=== PATIENT | male | born 1950 | race Two or more races ===

== ENCOUNTER 2021-12-02 08:40 | Outpatient (REF) | payer MEDICARE, SELFPAY ==
--- NOTE | ~2021-12-02 | CT_ITS ---
CT ANGIOGRAM NECK WITH CONTRAST CT ANGIOGRAM BRAIN WITH CONTRAST CLINICAL INFORMATION: Recurrent syncope. COMPARISON: None available per TECHNIQUE: Test bolus sequences followed by intravenous administration 70 mL of Omnipaque 350. Helical imaging was performed in the axial plane from the thoracic inlet to the skull vertex. Delayed postcontrast imaging of the head was also performed. The data was processed at the soil technologist workstation for generation of MIP sequences. Angled MIPs and volume rendered reformatted images were also generated at an offline 3D workstation under concurrent supervision. Stenoses are assessed in accordance with NASCET criteria unless otherwise indicated. This CT examination was performed using dose optimization techniques as appropriate, variously including the following: *Automated exposure control *Adjustment of mA and/or kV according to patient size (this includes techniques or standardized protocols for targeted exams where dose is matched to indication/reason for exam; i.e. extremities or head) *Use of iterative reconstruction technique FINDINGS: BRAIN: There is global cerebral volume loss and there is probable moderate chronic microangiopathy. Calcification within the globus pallidus bilaterally. [There is no intracranial hemorrhage, hydrocephalus, extra-axial surface collection, midline shift, or other herniation pattern. Doan to white matter differentiation is diffusely maintained without evidence of an evolved acute territorial infarct. The basilar cisterns are preserved. No significant soft tissue abnormality. No acute osseous abnormality. There is mild mucosal thickening throughout the paranasal sinuses. Pneumatization of the optic struts and anterior clinoid processes bilaterally. There is mild mucosal thickening throughout the paranasal sinuses. CERVICAL SOFT TISSUES AND LUNG APICES: There are median sternotomy wires. There is multilevel cervical spondylosis. At C5-C6, there are advanced spondylitic changes result in suspected severe central canal stenosis and mass effect on the cervical spinal cord that would be better assessed with a cervical spine MRI if there is cervical myelopathy clinically. Imaged upper lungs are clear. No significant soft tissue findings within the neck. NECK CTA: [There is a classic 3 vessel configuration of the aortic arch. Proximal arch vessels are non-stenotic. The vertebral arteries are codominant. No significant ostial stenosis is visualized on either side. Both vertebral arteries are widely patent throughout their extracranial cervical course. Both common carotid arteries are normal in course and caliber.] There is atherosclerotic calcification involving the carotid bifurcations bilaterally without significant stenosis involving the proximal internal carotid arteries. BRAIN CTA: [There is normal opacification of major intracranial arteries. No focal flow-limiting stenosis nor discrete proximal large artery occlusion. No aneurysm. Timing of the contrast bolus allows assessment of the major dural venous sinuses, which all opacify normally] CT/CT angio head neck IMPRESSION: - No acute intracranial findings. There is global cerebral volume loss and there is probable moderate chronic microangiopathy. - No significant arterial stenoses and no acute arterial occlusions within the head or neck. - At C5-C6, there are advanced spondylitic changes result in suspected severe central canal stenosis and mass effect on the cervical spinal cord that would be better assessed with a cervical spine MRI if there is cervical myelopathy clinically.
[2021-12-02] MEDS: iohexoL 350 MG/ML 100 ML INFUS..BTL IV (09:38)
== END 2021-12-02 08:41 | disposition home or self-care (01) ==
LOC: HO.CT 08:40
PROVIDERS: Visit Provider Psychiatry & Neurology Neurology
DX: R55 Syncope and collapse (principal)
CPT/HCPCS: 70496; 70498; Q9967

== ENCOUNTER 2022-02-28 10:35 | Observation (INO) | payer MEDICARE, SELFPAY ==
[2022-02-28] VITALS (9 sets, daily range): BP systolic 132–186; BP diastolic 80–98; PULSE 52–66; RESP 13–18; TEMP 36.6–36.9; O2SAT 95–97; BMI 30.7; BMI 31.3
--- NOTE | ~2022-02-28 | XR_ITS ---
EXAMINATION: XR chest 1V CLINICAL INFORMATION: Reason for Exam Syncope COMPARISON: None TECHNIQUE: XR chest 1V Tubes and lines: Sternotomy wires from prior thoracotomy. Lungs and pleura: Diminished lung volume, elevated left hemidiaphragm, there is mild infiltrate and subsegmental atelectasis at lung bases bilaterally. No significant pleural effusion. Heart and mediastinum: The mediastinum is within normal limits.. Bones/soft tissue: Skeletal structures included are normal for patient's age. XR/XR chest 1V IMPRESSION: Bibasilar mild infiltrate/atelectasis. Elevation left hemidiaphragm. Clinical correlation and follow-up recommended.
--- NOTE | ~2022-02-28 | CT_ITS ---
EXAMINATION: CT HEAD WITHOUT CONTRAST CT CERVICAL SPINE WITHOUT CONTRAST CLINICAL INFORMATION: Head trauma. On Eliquis COMPARISON: None. TECHNIQUE: Imaging was performed from the skull base to vertex without intravenous administration of contrast. In addition, helical noncontrast CT imaging was acquired through the cervical spine and source images were reviewed along with axial reconstructions and sagittal and coronal MPRs. [This CT examination was performed using dose optimization techniques as appropriate, variously including the following: *Automated exposure control *Adjustment of mA and/or kV according to patient size (this includes techniques or standardized protocols for targeted exams where dose is matched to indication/reason for exam; i.e. extremities or head) *Use of iterative reconstruction technique] DLP: 1201 mGy-cm FINDINGS: HEAD: No intracranial mass, hemorrhage, or midline shift is visualized. There is generalized global volume loss. There is moderate prominence of the ventricles and the sulci . There is moderate hypodensity of the periventricular white matter due to chronic small vessel ischemic disease. There are vascular calcifications of the internal carotid arteries bilaterally.. No extra-axial collections are identified. The paranasal sinuses and mastoid air cells are well aerated. CERVICAL SPINE: There is no evidence of acute cervical spine fracture. Vertebral bodies remain normal in height. Cervical vertebrae have normal alignment. There is multilevel degenerative spondylosis of the cervical spine with disc height narrowing and endplate spurs and facet joint arthrosis No pre- or paravertebral soft tissue abnormality is identified. Limited assessment of the lung apices is unremarkable. CT/CT cervical spine wo con IMPRESSION: 1. No acute intracranial pathology. 2. No CT evidence of acute cervical spine fracture or traumatic subluxation
--- NOTE | ~2022-02-28 | CT_ITS ---
EXAMINATION: CT ABDOMEN AND PELVIS WITH CONTRAST CLINICAL INFORMATION: Status post fall, left lower quadrant pain, on Eliquis. COMPARISON: None TECHNIQUE: Multidetector volumetric images were obtained from the superior aspect of the liver through the pubic symphysis following administration 85 mL of Omnipaque 350 intravenous contrast. Sagittal and coronal reformatted images were obtained on the technologist's workstation. Oral contrast: No This CT examination was performed using dose optimization techniques as appropriate, variously including the following: *Automated exposure control *Adjustment of mA and/or kV according to patient size (this includes techniques or standardized protocols for targeted exams where dose is matched to indication/reason for exam; i.e. extremities or head) *Use of iterative reconstruction technique DLP: 849 mGy-cm FINDINGS: LUNG BASES: Elevation of the left hemidiaphragm. LIVER, GALLBLADDER, AND BILIARY TREE: Unremarkable. PANCREAS: Fatty atrophy, most pronounced in the pancreatic head. No pancreatic ductal dilatation. Pancreatic abnormality. SPLEEN: Unremarkable. ADRENAL GLANDS: Unremarkable. KIDNEYS AND URETERS: Right fluid attenuation interpolar renal cyst measures 2.1 cm (image 29, series 3). The left kidney is unremarkable. No hydronephrosis. BLADDER: Unremarkable. GASTROINTESTINAL TRACT: The stomach and small bowel are unremarkable. The colon is unremarkable. The rectum shows moderate stool without surrounding abnormality. ABDOMINAL WALL: Multiple small to moderate fat-containing supraumbilical ventral hernias are seen without associated abnormality. Very small umbilical hernia. LYMPH NODES: No lymphadenopathy. VASCULAR: Mild to moderate atherosclerosis, most pronounced in the infrarenal abdominal aorta without dilatation. PELVIC VISCERA: Unremarkable. OSSEOUS STRUCTURES: Mild multilevel degenerative changes in the thoracolumbar spine without suspicious abnormality. CT/CT abdomen pelvis w con IMPRESSION: 1. No acute intra-abdominal/pelvic abnormality to explain the patient's pain. No evidence for hemorrhage/hematoma. 2. Multiple small to moderate supraumbilical midline fat-containing ventral hernias without associated abnormality. 3. Pancreatic fatty atrophy as detailed above without acute abnormality. 4. Small right renal fluid attenuation cyst.
--- NOTE | 2022-02-28 11:31 | ECG_ITS ---
Test Reason : syncope Blood Pressure : / mmHG Vent. Rate : 056 BPM Atrial Rate : 056 BPM P-R Int : 194 ms QRS Dur : 162 ms QT Int : 506 ms P-R-T Axes : -03 -72 -03 degrees QTc Int : 488 ms Sinus bradycardia with Premature atrial complexes Right bundle branch block Left anterior fascicular block Bifascicular block Minimal voltage criteria for LVH, may be normal variant ( R in aVL ) Septal infarct , age undetermined Abnormal ECG No previous ECGs available Referred By: Alda Norris Electronically Signed By:Buzz Ojeda
[2022-02-28 12:49] LABS: MANUAL DIFF FLAG NO
[2022-02-28 12:53] LABS: Basophils Percent Auto 0.2 % (0-2); Hematocrit 44.5 % (42.0-52.0); Hemoglobin 15.4 g/dl (14.0-18.0); Imm Gran Abs Auto 0.05 X10*3/uL (0.00-0.03); Imm Gran Pct Auto 0.5 % (0.0-0.4); Lymphocytes Absolute Auto 1.5 X10*3/uL (1.2-4.9); Lymphocytes Percent Auto 13.9 % (20-40); Mean Corpuscular HGB Conc 34.6 g/dl (31.0-36.0); Mean Corpuscular Volume 86.6 fL (80.0-98.0); Mean Platelet Volume 10.1 fL (9.4-12.4); Monocytes Absolute Auto 1.1 X10*3/uL (0.1-1.2); Neutrophils Percent Auto 75.4 % (45-73); Platelet Count 228 X10*3/uL (160-400); Red Blood Count 5.14 X10*6/uL (4.60-5.80); Red Cell Distribution Width 12.6 % (11.0-16.0); White Blood Count 10.6 X10*3/uL (4.8-10.8)
[2022-02-28 13:06] LABS: COVID-19 Test Negative (Negative); IDNOW Serial# 55D5AD1C
--- NOTE | 2022-02-28 13:15 | PHA.MEDREC ---
Pharmacy Consult ? Medication Reconciliation Pharmacy has completed the medication reconciliation. No remarkable issues. Erinn Hemphill, HiraD
--- NOTE | 2022-02-28 13:42 | ED_ITS ---
HPI - General Adult General Chief complaint: Syncope Stated complaint: syncope Time Seen by Provider: 02/28/22 11:52 Source: patient and EMS Mode of arrival: EMS History of Present Illness HPI narrative: 71-year-old male with a past medical history CAD s/p CABG 2013 on Eliquis, presenting to the ED complaining of unwitnessed syncopal episode this morning while at a restaurant drinking coffee. Reports fall out of chair +LOC, admits to mild headache and neck pain at present, nausea which has resolved. Reports feeling lightheaded prior to fall, with generalized fatigue/weakness and slow movements over the past few days, which family at bedside reports usually precedes these episodes. This is patient's 5th syncopal episode in the past year. Otherwise denies CP/SOB, abdominal pain, nausea/vomiting, diarrhea, recent illness. Onset (ago): hour(s) Related Data Home Medications Medication Instructions Recorded Confirmed albuterol sulfate 90 mcg/actuation 2 puff PO Q4H 02/28/22 02/28/22 aerosol inhaler alfuzosin 10 mg tablet,extended 1 tab PO Q OTHER DAY 02/28/22 02/28/22 release 24 hr apixaban 5 mg tablet (Eliquis) 1 tab PO BID 02/28/22 02/28/22 azithromycin 250 mg tablet 1 tab PO MOWEFR 02/28/22 02/28/22 budesonide 180 mcg/actuation 1 - 2 puff INHALATION BID 02/28/22 02/28/22 breath activated powder inhaler (Pulmicort Flexhaler) budesonide-formoterol HFA 160 2 inh INHALATION BID 02/28/22 02/28/22 mcg-4.5 mcg/actuation aerosol inhaler (Symbicort) finasteride 5 mg tablet 1 tab PO DAILY 02/28/22 02/28/22 furosemide 20 mg tablet 1 tab PO BID 02/28/22 02/28/22 multivitamin 1 tab PO DAILY 02/28/22 02/28/22 omega [id number]-[id number]-fish oil 1,200 mg 1 cap PO DAILY 02/28/22 02/28/22 (144 mg-216 mg) capsule (Fish Oil) omeprazole 20 mg capsule,delayed 1 cap PO BID 02/28/22 02/28/22 release sodium chloride 3 % for 3 ml INHALATION BID 02/28/22 02/28/22 nebulization (NebuSal) Allergies Allergy/AdvReac Type Severity Reaction Status Date / Time Penicillins Allergy Unknown Unknown Verified 02/28/22 12:00 Review of Systems Review of Systems: Constitutional: No Fever, No Chills, + Fatigue, + Malaise ENT/Mouth: No Ear Pain, No Nasal Congestion, No sore throat, No Rhinorrhea, No Swallowing Difficulty Eyes: No Eye Pain, No Swelling, No Redness, No Vision Changes Cardiovascular: No Chest Pain, No SOB, No Edema, No Palpitations Respiratory: No Cough, No Sputum, No Dyspnea Gastrointestinal: + Nausea(resolved), No Vomiting, No Diarrhea, No Constipation, No Abdominal pain Genitourinary: No Dysuria, No Urinary Frequency, No Hematuria, No Urinary Incontinence, No Urgency, No Flank Pain Musculoskeletal: No joint pain, No Myalgias, No Joint Swelling Skin: + Skin Lesions, No rash Neuro: No Weakness, No Numbness, No Paresthesias, + Loss of Consciousness, + lightheaded, + syncope, + Headache Yes all other systems are reviewed and are negative [facility] Past Medical History Attestation statement: The following information was validated with the patient. Social History Social History Advance Directives: No Advance Directives Information Provided: No Physical Exam ED Vital Signs: Vital Signs - 24 hr 02/28/22 11:01 02/28/22 14:59 02/28/22 15:00 Temperature 97.8 F Pulse Rate 55 59 61 Respiratory Rate 18 13 Blood Pressure 166/90 H 169/91 H 163/91 H Pulse Oximetry 95 95 02/28/22 15:01 02/28/22 15:02 02/28/22 17:19 Temperature 98.4 F Pulse Rate 62 66 55 Respiratory Rate 18 Blood Pressure 179/98 H 155/97 H 166/90 H Pulse Oximetry 95 BMI result Body Mass Index 30.7 Const General: cooperative, healthy appearing and alert Orientation/consciousness: patient oriented x3 Limitations: no limitations HENMT Other: Abrasion/swelling noted to left forehead and nasal bridge Ears: hearing grossly normal bilaterally General nose exam: Normal external nose present Face and sinus: Yes normal facial exam Mouth: Normal oral and palatal mucosa present Throat: Yes posterior oropharynx normal Eyes General: appearance normal, both eyes and all related structures Pupils: Equal, round and reactive pupils present (Pupils unequal chronically from cataract surgery) EOM: EOMs intact bilaterally Neck Other: C-collar in place Neck: Yes normal visual inspection and Yes no meningeal signs Chest Chest palpation & inspection: no tenderness Resp Effort & Inspection: normal respiratory effort and no respiratory distress Auscultation: clear to auscultation bilaterally, no rales, no rhonchi and no wheezes Cardio Rate: regular rate Heart sounds: S1 normal heart sound present and S2 normal heart sound present GI Inspection: Yes normal to inspection Palpation (GI): Soft to palpation, Tenderness to palpation present (GI) in the LLQ, no guarding and not rigid General: Yes no CVA tenderness Back/Spine/Pelvis Back: no CVA tenderness Skin Rashes: no rashes Neuro Other: Slow clear speech General: patient oriented x3, tone normal, moves all extremities, no meningeal signs, no focal motor deficits and CN's II-XI intact bilaterally Cranial nerves: Yes CN's II-XII intact bilaterally, Yes Equal, round and reactive pupils present (Pupils unequal chronically from cataract surgery) and Yes Bilaterally intact EOM present Motor exam (neuro): 5/5 motor strength present throughout Coordination: [id number] test normal Romberg Test: Negative Extrem General: Yes normal to inspection and Yes no pedal edema Course Course Course Narrative: 1530--labs unremarkable. Initial troponin negative. COVID-[address] head/brain wo con/ CT cervical spine wo con IMPRESSION: 1. No acute intracranial pathology. 2. No CT evidence of acute cervical spine fracture or traumatic subluxation >> C collar removed/C-spine cleared 1719--CT abdomen pelvis w con IMPRESSION: 1. No acute intra-abdominal/pelvic abnormality to explain the patient's pain. No evidence for hemorrhage/hematoma. 2. Multiple small to moderate supraumbilical midline fat-containing ventral hernias without associated abnormality. 3. Pancreatic fatty atrophy as detailed above without acute abnormality. 4. Small right renal fluid attenuation cyst. XR chest 1V IMPRESSION: Bibasilar mild infiltrate/atelectasis. Elevation left hemidiaphragm. Clinical correlation and follow-up recommended. >> blood cultures, Ceftriaxone/Azithromycin ordered. Plan to admit for further management Medical Decision Making [facility] Narrative Medical decision making narrative: 71-year-old male with a past medical history CAD s/p CABG 2012 on Eliquis, pr esenting to the ED complaining of unwitnessed syncopal episode this morning while at a restaurant drinking coffee. Reports fall out of chair +LOC, admits to mild headache and neck pain at present. On exam vital signs stable, NAD/nontoxic-appearing, physical exam as above, C-collar in place, no focal neuro deficits. Concern for ACS vs metabolic/infectious etiologies. Unlikely PE as patient is anticoagulated and these are recurrent episodes. Plan: EKG, labs, UA, CXR, head/C-spine CT, CT/AP, orthostatics Lab Data Result diagrams: 02/28/22 12:43 02/28/22 13:23 Labs: Lab Results 02/28/22 02/28/22 02/28/22 Range/Units 12:43 12:43 13:23 WBC 10.6 (4.8-10.8) X10*3/uL RBC 5.14 (4.60-5.80) X10*6/uL Hgb 15.4 (14.0-18.0) g/dl Hct 44.5 (42.0-52.0) % MCV 86.6 (80.0-98.0) fL MCH 30.0 (27.0-33.0) pg MCHC 34.6 (31.0-36.0) g/dl RDW 12.6 (11.0-16.0) % Plt Count 228 (160-400) X10*3/uL MPV 10.1 (9.4-12.4) fL Immature Gran % (Auto) 0.5 H (0.0-0.4) % Neut % (Auto) 75.4 H (45-73) % Lymph % (Auto) 13.9 L (20-40) % [place] % (Auto) 10.0 (2-11) % Eos % (Auto) 0.0 (0-4) % Baso % (Auto) 0.2 (0-2) % Lymph # (Auto) 1.5 (1.2-4.9) X10*3/uL [place] # (Auto) 1.1 (0.1-1.2) X10*3/uL Eos # (Auto) 0.0 (0.0-0.4) X10*3/uL Baso # (Auto) 0.0 (0.0-0.2) X10*3/uL Abs Immat Gran (auto) 0.05 H (0.00-0.03) X10*3/uL Absolute Neuts (auto) 8.0 (2.0-8.3) x10*3/uL Absolute Nucleated RBC 0.000 (0.0-0.012) X10*3/uL Nucleated RBC % (auto) 0.0 (0.0-0.2) /100WBC PT 15.2 H (9.9-13.0) SEC INR 1.3 H (0.9-1.1) APTT 35.4 (24.1-38.0) SEC Sodium (135-145) mmol/L Potassium (3.3-5.1) mmol/L Chloride (96-108) mmol/L Carbon Dioxide (22-29) mmol/L Anion Gap (12-20) BUN (9-16) mg/dL Creatinine (0.5-1.4) mg/dL Estim Creat Clear Calc Estimated GFR POC Glucose (60-115) mg/dL Random Glucose (60-115) mg/dL Calcium (8.4-10.2) mg/dL Magnesium (1.6-2.6) mg/dL Total Bilirubin (0.0-1.0) mg/dL Direct Bilirubin (0.0-0.5) mg/dL AST (5-37) U/L ALT (0-40) U/L Alkaline Phosphatase (39-117) U/L Troponin I High Sens (<3.5-35.0) ng/L B-Natriuretic Peptide (<100) pg/mL Total Protein (6.5-8.0) g/dL Albumin (3.5-5.0) g/dL Lipase (8-78) U/L COVID-19 (MATT) Negative (Negative) COVID-19 Clin Com See Note 02/28/22 02/28/22 02/28/22 Range/Units 13:23 13:23 15:10 WBC (4.8-10.8) X10*3/uL RBC (4.60-5.80) X10*6/uL Hgb (14.0-18.0) g/dl Hct (42.0-52.0) % MCV (80.0-98.0) fL MCH (27.0-33.0) pg MCHC (31.0-36.0) g/dl RDW (11.0-16.0) % Plt Count (160-400) X10*3/uL MPV (9.4-12.4) fL Immature Gran % (Auto) (0.0-0.4) % Neut % (Auto) (45-73) % Lymph % (Auto) (20-40) % [place] % (Auto) (2-11) % Eos % (Auto) (0-4) % Baso % (Auto) (0-2) % Lymph # (Auto) (1.2-4.9) X10*3/uL [place] # (Auto) (0.1-1.2) X10*3/uL Eos # (Auto) (0.0-0.4) X10*3/uL Baso # (Auto) (0.0-0.2) X10*3/uL Abs Immat Gran (auto) (0.00-0.03) X10*3/uL Absolute Neuts (auto) (2.0-8.3) x10*3/uL Absolute Nucleated RBC (0.0-0.012) X10*3/uL Nucleated RBC % (auto) (0.0-0.2) /100WBC PT (9.9-13.0) SEC INR (0.9-1.1) APTT (24.1-38.0) SEC Sodium 135 (135-145) mmol/L Potassium 4.5 (3.3-5.1) mmol/L Chloride 99 (96-108) mmol/L Carbon Dioxide 30 H (22-29) mmol/L Anion Gap 11 L (12-20) BUN 14 (9-16) mg/dL Creatinine 0.97 (0.5-1.4) mg/dL Estim Creat Clear Calc 70.8 Estimated GFR > 60 POC Glucose (60-115) mg/dL Random Glucose 120 H (60-115) mg/dL Calcium 9.3 (8.4-10.2) mg/dL Magnesium 2.1 (1.6-2.6) mg/dL Total Bilirubin 0.6 (0.0-1.0) mg/dL Direct Bilirubin 0.2 (0.0-0.5) mg/dL AST 26 (5-37) U/L ALT 29 (0-40) U/L Alkaline Phosphatase 61 (39-117) U/L Troponin I High Sens 3.5 5.5 D (<3.5-35.0) ng/L B-Natriuretic Peptide 78 (<100) pg/mL Total Protein 6.6 (6.5-8.0) g/dL Albumin 3.7 (3.5-5.0) g/dL Lipase 17 (8-78) U/L COVID-19 (MATT) (Negative) COVID-19 Clin Com 02/28/22 Range/Units 17:09 WBC (4.8-10.8) X10*3/uL RBC (4.60-5.80) X10*6/uL Hgb (14.0-18.0) g/dl Hct (42.0-52.0) % MCV (80.0-98.0) fL MCH (27.0-33.0) pg MCHC (31.0-36.0) g/dl RDW (11.0-16.0) % Plt Count (160-400) X10*3/uL MPV (9.4-12.4) fL Immature Gran % (Auto) (0.0-0.4) % Neut % (Auto) (45-73) % Lymph % (Auto) (20-40) % [place] % (Auto) (2-11) % Eos % (Auto) (0-4) % Baso % (Auto) (0-2) % Lymph # (Auto) (1.2-4.9) X10*3/uL [place] # (Auto) (0.1-1.2) X10*3/uL Eos # (Auto) (0.0-0.4) X10*3/uL Baso # (Auto) (0.0-0.2) X10*3/uL Abs Immat Gran (auto) (0.00-0.03) X10*3/uL Absolute Neuts (auto) (2.0-8.3) x10*3/uL Absolute Nucleated RBC (0.0-0.012) X10*3/uL Nucleated RBC % (auto) (0.0-0.2) /100WBC PT (9.9-13.0) SEC INR (0.9-1.1) APTT (24.1-38.0) SEC Sodium (135-145) mmol/L Potassium (3.3-5.1) mmol/L Chloride (96-108) mmol/L Carbon Dioxide (22-29) mmol/L Anion Gap (12-20) BUN (9-16) mg/dL Creatinine (0.5-1.4) mg/dL Estim Creat Clear Calc Estimated GFR POC Glucose 104 (60-115) mg/dL Random Glucose (60-115) mg/dL Calcium (8.4-10.2) mg/dL Magnesium (1.6-2.6) mg/dL Total Bilirubin (0.0-1.0) mg/dL Direct Bilirubin (0.0-0.5) mg/dL AST (5-37) U/L ALT (0-40) U/L Alkaline Phosphatase (39-117) U/L Troponin I High Sens (<3.5-35.0) ng/L B-Natriuretic Peptide (<100) pg/mL Total Protein (6.5-8.0) g/dL Albumin (3.5-5.0) g/dL Lipase (8-78) U/L COVID-19 (MATT) (Negative) COVID-19 Clin Com ECG Data Attestation: I personally reviewed and interpreted this ECG as follows: Interpretation: EKG showing sinus bradycardia with PACs at a rate of 56. QTC 488. RBBB Discharge Plan Discharge Clinical Impression: Syncope, Pneumonia Patient Disposition: Admitted As Inpatient
[2022-02-28 13:52] LABS: B Type Natriuretic Peptide 78 pg/mL (<100); Troponin-I High Sensitivity 3.5 ng/L (<3.5-35.0)
[2022-02-28 13:55] LABS: INTERNATIONAL NORM RATIO 1.3 (0.9-1.1); Prothrombin Time 15.2 SEC (9.9-13.0)
[2022-02-28 13:57] LABS: Partial Thromboplastin Time 35.4 SEC (24.1-38.0)
[2022-02-28 13:58] LABS: Alanine Aminotransferase 29 U/L (0-40); Albumin Level 3.7 g/dL (3.5-5.0); Alkaline Phosphatase 61 U/L (39-117); Anion Gap 11 (12-20); Aspartate Amino Transferase 26 U/L (5-37); Bilirubin Direct 0.2 mg/dL (0.0-0.5); Bilirubin Total 0.6 mg/dL (0.0-1.0); Blood Urea Nitrogen 14 mg/dL (9-16); Calcium 9.3 mg/dL (8.4-10.2); Carbon Dioxide 30 mmol/L (22-29); Chloride 99 mmol/L (96-108); Creatinine Clr Calc Pharmacy 70.8; Estimated Glomerular Filt Rate > 60; Glucose Random 120 mg/dL (60-115); Lipase 17 U/L (8-78); Magnesium 2.1 mg/dL (1.6-2.6); Potassium 4.5 mmol/L (3.3-5.1); Sodium 135 mmol/L (135-145); Total Protein 6.6 g/dL (6.5-8.0)
[2022-02-28] MEDS: iohexoL 350 MG/ML 100 ML INFUS..BTL IV (14:41)
[2022-02-28 15:53] LABS: Troponin-I High Sensitivity 5.5 ng/L (<3.5-35.0)
[2022-02-28 17:15] LABS: Glucose, Whole Blood 104 mg/dL (60-115)
--- NOTE | 2022-02-28 17:59 | P.HPHOSP_ITS ---
History of Present Illness Date of Service: 02/28/22 Chief Complaint: syncope, weakness a 71 years old male with PMH of CAD post CABG on Eliquis, CHF, COPD who presents to the hospital with complains of unwitnessed syncope this morning. The patient reported that he was at the wrist on drinking coffee when suddenly he felt lightheaded is and the next thing he remembers waking up in the ambulance he denies any headache, double vision, palpitation, chest pain, shortness of breath, change in bowel habit or urinary symptoms. He reports this is the 5th episode of syncope this year as he was evaluated previously at [facility] for the same problem with no definitive diagnosis but he was told it is migraine variant or vasovagal attack. The patient reported mild headache as he hit his head with the table but no vomiting or headache at this point. In the emergency images for the brain were negative for any acute findings. CXR was concerning for possible pneumonia as the patient reported feeling weaker over the last few days with decreased energy. Admitted for further evaluation and treatment. Review of Systems Review of Systems: No fever, chills But reports generalized weakness No chest pain, palpitation No shortness of breath or coughing No abdominal pain, nausea or vomiting No urinary symptoms No any rash or wounds [facility] Medical History CAD (coronary artery disease) COPD (chronic obstructive pulmonary disease) Social History Advance Directives: No Advance Directives Information Provided: No Meds Allergies Allergy/AdvReac Type Severity Reaction Status Date / Time Penicillins Allergy Unknown Unknown Verified 02/28/22 12:00 Active Medications: Current Medications Acetaminophen (Acetaminophen 325 Mg Tablet) 650 mg PO Q6H PRN PRN Reason: Pain, Mild (Pain Scale 1-3) Albuterol Sulfate (Albuterol Sulfate 90 Mcg 8 Gm Inhaler) 2 puff INHALE Q4H [facility] Apixaban (Apixaban 5 Mg Tablet) 5 mg PO BID [facility] Budesonide (Budesonide 180 Mcg Aer.Pow.Ba) 2 puff INHALE RBID [facility] Finasteride (Finasteride 5 Mg Tablet) 5 mg PO DAILY [facility] Furosemide (Furosemide 20 Mg Tablet) 20 mg PO BID [facility]; Protocol Azithromycin 500 mg/ Sodium (Chloride) 250 mls @ 125 mls/hr IV ONCE ONE Stop: 02/28/22 19:20 Azithromycin 500 mg/ Sodium (Chloride) 250 mls @ 125 mls/hr IV Q24H [facility] Ceftriaxone Sodium 1 gm/ (Sodium Chloride) 50 mls @ 100 mls/hr IV Q24H [facility] Multivitamins/Vitamin C (Multivitamin Tablet) 1 tab PO DAILY [facility] Omeprazole (Omeprazole 20 Mg Capsule.Dr) 20 mg PO BID [facility] Ondansetron HCl (Ondansetron Hcl 4 Mg/2 Ml Vial) 4 mg IVPUSH Q8H PRN PRN Reason: Nausea and Vomiting Pharmacy Consult (Consult Rx Perform Med Rec) 1 each MISCELLANE ONCE PRN PRN Reason: Consult order Sodium Chloride (Sodium Chloride 0.9 % Inhalat 3 Ml Vial.Neb) 3 ml INHALE BID [facility] Sodium Chloride (0.9 % Sodium Chloride Flush 3 Ml Syringe) 3 ml IVFLUSH QSHIFT [facility] Home Medications Medication Instructions Recorded Confirmed Last Taken Type albuterol sulfate 90 mcg/actuation 2 puff PO Q4H 02/28/22 02/28/22 Unknown History aerosol inhaler alfuzosin 10 mg tablet,extended 1 tab PO Q OTHER DAY 02/28/22 02/28/22 02/27/22 History release 24 hr apixaban 5 mg tablet (Eliquis) 1 tab PO BID 02/28/22 02/28/22 02/28/22 History azithromycin 250 mg tablet 1 tab PO MOWEFR 02/28/22 02/28/22 02/26/22 History budesonide 180 mcg/actuation 1 - 2 puff INHALATION BID 02/28/22 02/28/22 02/28/22 History breath activated powder inhaler (Pulmicort Flexhaler) budesonide-formoterol HFA 160 2 inh INHALATION BID 02/28/22 02/28/22 02/27/22 History mcg-4.5 mcg/actuation aerosol inhaler (Symbicort) finasteride 5 mg tablet 1 tab PO DAILY 02/28/22 02/28/22 02/28/22 History furosemide 20 mg tablet 1 tab PO BID 02/28/22 02/28/22 02/28/22 History multivitamin 1 tab PO DAILY 02/28/22 02/28/22 02/28/22 History omega 9-tum-oki-fish oil 1,200 mg 1 cap PO DAILY 02/28/22 02/28/22 02/28/22 History (144 mg-216 mg) capsule (Fish Oil) omeprazole 20 mg capsule,delayed 1 cap PO BID 02/28/22 02/28/22 02/28/22 History release sodium chloride 3 % for 3 ml INHALATION BID 02/28/22 02/28/22 02/28/22 History nebulization (NebuSal) Physical Exam Vital Signs and Narrative: Vital Signs: Last Vital Signs Temp 98.4 F 02/28/22 17:19 Pulse 55 02/28/22 17:19 Resp 18 02/28/22 17:19 BP 166/90 H 02/28/22 17:19 Pulse Ox 95 02/28/22 17:19 BMI result Body Mass Index 30.7 Const: Other: Constitutional : Alert, oriented, not in distress Neck : Normal inspection, Supple Cardiovascular : RRR, no JVP, no lower extremity edema Respiratory : fair bilateral air entry, basal fine bilateral crackles, wheezes or rhonchi Gastrointestinal: soft, lax, Normal bowel sounds, Non tender Skin : Warm, Dry Neurological : Alert & oriented x3, No focal deficit , CN 2-12 within normal Results Labs CBC and Chem 7: 02/28/22 12:43 02/28/22 13:23 Labs: Laboratory Results - last 24 hr 02/28/22 02/28/22 02/28/22 12:43 12:43 13:23 MCV 86.6 MCH 30.0 MCHC 34.6 RDW 12.6 Plt Count 228 MPV 10.1 Immature Gran % (Auto) 0.5 H Neut % (Auto) 75.4 H Lymph % (Auto) 13.9 L [place] % (Auto) 10.0 Eos % (Auto) 0.0 Baso % (Auto) 0.2 Lymph # (Auto) 1.5 [place] # (Auto) 1.1 Eos # (Auto) 0.0 Baso # (Auto) 0.0 Abs Immat Gran (auto) 0.05 H Absolute Neuts (auto) 8.0 Absolute Nucleated RBC 0.000 Nucleated RBC % (auto) 0.0 PT 15.2 H INR 1.3 H APTT 35.4 Anion Gap Estim Creat Clear Calc Estimated GFR POC Glucose Random Glucose Calcium Magnesium Total Bilirubin Direct Bilirubin AST ALT Alkaline Phosphatase Troponin I High Sens B-Natriuretic Peptide Total Protein Albumin Lipase COVID-19 (MATT) Negative COVID-19 [employer] Com See Note 02/28/22 02/28/22 02/28/22 13:23 13:23 15:10 MCV MCH MCHC RDW Plt Count MPV Immature Gran % (Auto) Neut % (Auto) Lymph % (Auto) [place] % (Auto) Eos % (Auto) Baso % (Auto) Lymph # (Auto) [place] # (Auto) Eos # (Auto) Baso # (Auto) Abs Immat Gran (auto) Absolute Neuts (auto) Absolute Nucleated RBC Nucleated RBC % (auto) PT INR APTT Anion Gap 11 L Estim Creat Clear Calc 70.8 Estimated GFR > 60 POC Glucose Random Glucose 120 H Calcium 9.3 Magnesium 2.1 Total Bilirubin 0.6 Direct Bilirubin 0.2 AST 26 ALT 29 Alkaline Phosphatase 61 Troponin I High Sens 3.5 5.5 D B-Natriuretic Peptide 78 Total Protein 6.6 Albumin 3.7 Lipase 17 COVID-19 (MATT) COVID-19 [employer] Com 02/28/22 17:09 MCV MCH MCHC RDW Plt Count MPV Immature Gran % (Auto) Neut % (Auto) Lymph % (Auto) [place] % (Auto) Eos % (Auto) Baso % (Auto) Lymph # (Auto) [place] # (Auto) Eos # (Auto) Baso # (Auto) Abs Immat Gran (auto) Absolute Neuts (auto) Absolute Nucleated RBC Nucleated RBC % (auto) PT INR APTT Anion Gap Estim Creat Clear Calc Estimated GFR POC Glucose 104 Random Glucose Calcium Magnesium Total Bilirubin Direct Bilirubin AST ALT Alkaline Phosphatase Troponin I High Sens B-Natriuretic Peptide Total Protein Albumin Lipase COVID-19 (MATT) COVID-19 [facility] Radiologist's Impressions: Impressions Cervical Spine CT 02/28/22 14:15 IMPRESSION: 1. No acute intracranial pathology. 2. No CT evidence of acute cervical spine fracture or traumatic subluxation Head CT 02/28/22 14:15 IMPRESSION: 1. No acute intracranial pathology. 2. No CT evidence of acute cervical spine fracture or traumatic subluxation Abdomen/Pelvis CT 02/28/22 14:50 IMPRESSION: 1. No acute intra-abdominal/pelvic abnormality to explain the patient's pain. No evidence for hemorrhage/hematoma. 2. Multiple small to moderate supraumbilical midline fat-containing ventral hernias without associated abnormality. 3. Pancreatic fatty atrophy as detailed above without acute abnormality. 4. Small right renal fluid attenuation cyst. Chest X-Ray 02/28/22 15:41 IMPRESSION: Bibasilar mild infiltrate/atelectasis. Elevation left hemidiaphragm. Clinical correlation and follow-up recommended. Assessment and Plan (1) Syncope: Status: Acute (2) Pneumonia: Status: Acute Plan a 71 years old male with PMH of CAD post CABG on Eliquis, CHF, COPD who presents to the hospital with complains of unwitnessed syncope this morning. syncope Could be vasovagal, migraine or other etiology CT negative for any acute finding Monitor on telemetry Get Neurology evaluation Pneumonia Pending cultures continue IV azithromycin and ceftriaxone CAD post CABG Continue home medications of Eliquis, Lasix COPD Not in exacerbation Budesonide inhaler DVT PPX Eliquis Quality Stroke Does the patient have a stroke diagnosis?: No VTE Prior VTE?: No VTE Risk Level:: Medical - low VTE Device Contraindication: Treatment Not Indicated VTE Drug Contraindication: N/A - Med Ordered
[2022-02-28] MEDS: cefTRIAXone sodium 1 GM in 0.9 % Sodium Chloride 50 ML IV (19:17)
[2022-02-28] MEDS: Azithromycin 500 MG in 0.9 % Sodium Chloride 250 ML 125 MG IV (19:46)
[2022-02-28] MEDS: Apixaban 5 MG TABLET PO (21:45)
[2022-02-28] MEDS: 0.9 % Sodium Chloride Flush 3 ML SYRINGE IVFLUSH (21:47)
[2022-03-01 03:56] VITALS: BP 118/63; PULSE 62; RESP 18; TEMP 36.8; O2SAT 95
[2022-03-01 06:44] LABS: Hematocrit 44.3 % (42.0-52.0); Hemoglobin 15.5 g/dl (14.0-18.0); Mean Corpuscular Hemoglobin 30.3 pg (27.0-33.0); Mean Corpuscular Volume 86.7 fL (80.0-98.0); Mean Platelet Volume 9.7 fL (9.4-12.4); Platelet Count 230 X10*3/uL (160-400); Red Blood Count 5.11 X10*6/uL (4.60-5.80); Red Cell Distribution Width 12.3 % (11.0-16.0); White Blood Count 10.8 X10*3/uL (4.8-10.8)
[2022-03-01 06:59] LABS: Anion Gap 12 (12-20); Blood Urea Nitrogen 14 mg/dL (9-16); Calcium 8.8 mg/dL (8.4-10.2); Carbon Dioxide 26 mmol/L (22-29); Chloride 102 mmol/L (96-108); Creatinine Clr Calc Pharmacy 86.7; Estimated Glomerular Filt Rate > 60; Glucose Random 99 mg/dL (60-115); Sodium 136 mmol/L (135-145)
[2022-03-01 07:22] VITALS: BP 137/78; PULSE 62; RESP 19; TEMP 36.3; O2SAT 96
[2022-03-01] MEDS: Budesonide 180 MCG AER.POW.BA 2 PUFF INHALE (07:49)
[2022-03-01] MEDS: Albuterol Sulfate 90 MCG 8 GM INHALER 2 PUFF INHALE ×2 (07:49→10:55)
[2022-03-01 07:59] VITALS: PULSE 62; RESP 16
[2022-03-01] MEDS: Finasteride 5 MG TABLET PO (09:56)
[2022-03-01] MEDS: Multivitamin TABLET 1 TAB PO (09:56)
[2022-03-01] MEDS: Apixaban 5 MG TABLET PO (09:57)
[2022-03-01] MEDS: 0.9 % Sodium Chloride Flush 3 ML SYRINGE IVFLUSH (09:57)
[2022-03-01] MEDS: Furosemide 20 MG TABLET PO (09:57)
--- NOTE | 2022-03-01 10:17 | MHC.CM.PN ---
Addendum entered by rAiana Monet 03/01/22 12:36: Patient is discharged today. CM requested she bring in the HCP. She stated that she will bring the HCP and tack picker the pt this afternoon. Original Note: ALICIA 03/01/22 MALE 71 DX SYNCOPE He lives with his . He is independent with all functional mobility. A copy of his HCP has been requested. DP home with 's assistance. She will provide transportation at discharge.
--- NOTE | 2022-03-01 10:18 | PM.NEUROCN ---
History of Present Illness Data of Consult Service Date: 03/01/22 Primary Care Provider: Faisal Harrison MD [facility] Reason for consult: fainting 71 years old man who had multiple episodes of fainting in his life. Many years ago he used to see Dr. Herzog who many years ago. No particular diagnosis was made. During last 2 years he had about 5 more episodes. There were similar. The 1st 1 was when he was traveling and landed a plane and had the 1st episode. The last 1 was yesterday when he was sitting in a coffee shop felt dizzy and lightheaded and then passed out waking up with embolus people around him. He said that he would also urinate during these episodes. Apparently he was initially evaluated by Cardiology and was noted to have coronary artery disease and atrial fibrillation and it was a zoom that these episodes were somehow related to his cardiac issues. Despite treatment for cardiac problems he continued to have these episodes. About 6 months ago he was seen by a neurologist in [place] and had an EEG and evaluation, which according to him also did not provide any conclusion. Review of Systems Review of Systems: No recent cold or flu-like illness. [facility] Past Medical History Medical History CAD (coronary artery disease) COPD (chronic obstructive pulmonary disease) Social History Social History Patient Tobacco Use Status: Never used Tobacco Advance Directives: No Advance Directives Information Provided: No service: No Current occupational status: unemployed Meds Allergies Allergy/AdvReac Type Severity Reaction Status Date / Time Penicillins Allergy Unknown Unknown Verified 02/28/22 12:00 Active Medications: Current Medications Acetaminophen (Acetaminophen 325 Mg Tablet) 650 mg PO Q6H PRN PRN Reason: Pain, Mild (Pain Scale 1-3) Albuterol Sulfate (Albuterol Sulfate 90 Mcg 8 Gm Inhaler) 2 puff INHALE RQ4H [facility] Last Admin: 03/01/22 07:49 Dose: 2 puff Documented by: Apixaban (Apixaban 5 Mg Tablet) 5 mg PO BID [facility] Last Admin: 03/01/22 09:57 Dose: 5 mg Documented by: Budesonide (Budesonide 180 Mcg Aer.Pow.Ba) 2 puff INHALE RBID [facility] Last Admin: 03/01/22 07:49 Dose: 2 puff Documented by: Finasteride (Finasteride 5 Mg Tablet) 5 mg PO DAILY [facility] Last Admin: 03/01/22 09:56 Dose: 5 mg Documented by: Furosemide (Furosemide 20 Mg Tablet) 20 mg PO BIDWM [facility]; Protocol Last Admin: 03/01/22 09:57 Dose: 20 mg Documented by: Azithromycin 500 mg/ Sodium (Chloride) 250 mls @ 125 mls/hr IV Q24H [facility] Ceftriaxone Sodium 1 gm/ (Sodium Chloride) 50 mls @ 100 mls/hr IV Q24H [facility] Multivitamins/Vitamin C (Multivitamin Tablet) 1 tab PO DAILY [facility] Last Admin: 03/01/22 09:56 Dose: 1 tab Documented by: Omeprazole (Omeprazole 20 Mg Capsule.) 20 mg PO BID@0630,1630 [facility] Last Admin: 03/01/22 06:52 Dose: Not Given Documented by: Ondansetron HCl (Ondansetron Hcl 4 Mg/2 Ml Vial) 4 mg IVPUSH Q8H PRN PRN Reason: Nausea and Vomiting Pharmacy Consult (Consult Rx Perform Med Rec) 1 each MISCELLANE ONCE PRN PRN Reason: Consult order Sodium Chloride (Sodium Chloride 0.9 % Inhalat 3 Ml Vial.Neb) 3 ml INHALE RBID [facility] Last Admin: 02/28/22 20:45 Dose: Not Given Documented by: Sodium Chloride (0.9 % Sodium Chloride Flush 3 Ml Syringe) 3 ml IVFLUSH QSHIFT [facility] Last Admin: 03/01/22 09:57 Dose: 3 ml Documented by: Home Medications Medication Instructions Recorded Confirmed Last Taken Type albuterol sulfate 90 mcg/actuation 2 puff PO Q4H 02/28/22 02/28/22 Unknown History aerosol inhaler alfuzosin 10 mg tablet,extended 1 tab PO Q OTHER DAY 02/28/22 02/28/22 02/27/22 History release 24 hr apixaban 5 mg tablet (Eliquis) 1 tab PO BID 02/28/22 02/28/22 02/28/22 History azithromycin 250 mg tablet 1 tab PO MOWEFR 02/28/22 02/28/22 02/26/22 History budesonide 180 mcg/actuation 1 - 2 puff INHALATION BID 02/28/22 02/28/22 02/28/22 History breath activated powder inhaler (Pulmicort Flexhaler) budesonide-formoterol HFA 160 2 inh INHALATION BID 02/28/22 02/28/22 02/27/22 History mcg-4.5 mcg/actuation aerosol inhaler (Symbicort) finasteride 5 mg tablet 1 tab PO DAILY 02/28/22 02/28/22 02/28/22 History furosemide 20 mg tablet 1 tab PO BID 02/28/22 02/28/22 02/28/22 History multivitamin 1 tab PO DAILY 02/28/22 02/28/22 02/28/22 History omega 5-xah-[place]-fish oil 1,200 mg 1 cap PO DAILY 02/28/22 02/28/22 02/28/22 History (144 mg-216 mg) capsule (Fish Oil) omeprazole 20 mg capsule,delayed 1 cap PO BID 02/28/22 02/28/22 02/28/22 History release sodium chloride 3 % for 3 ml INHALATION BID 02/28/22 02/28/22 02/28/22 History nebulization (NebuSal) Physical Exam Vital Signs: Vital Signs: Last Vital Signs Temp 97.3 F 03/01/22 07:22 Pulse 62 03/01/22 07:22 Resp 16 03/01/22 07:59 BP 137/78 03/01/22 07:22 Pulse Ox 96 03/01/22 07:22 BMI result Body Mass Index 31.3 Neuro: Other: Alert and awake with normal spontaneity of speech fluency comprehension and flat affect. Face was symmetrical. Visual cárdenas are full. There was no pronator drift. Deep tendon reflexes were absent with flexor plantars for Results Labs CBC & Chem 7: 03/01/22 06:09 03/01/22 06:09 Labs: Short CBC 02/28/22 03/01/22 Range/Units 12:43 06:09 WBC 10.6 10.8 (4.8-10.8) X10*3/uL Hgb 15.4 15.5 (14.0-18.0) g/dl Hct 44.5 44.3 (42.0-52.0) % Plt Count 228 230 (160-400) X10*3/uL BMP 02/28/22 03/01/22 13:23 06:09 Sodium 135 136 Potassium 4.5 4.0 Chloride 99 102 Carbon Dioxide 30 H 26 BUN 14 14 Creatinine 0.97 0.80 Calcium 9.3 8.8 Liver Function 02/28/22 Range/Units 13:23 Total Bilirubin 0.6 (0.0-1.0) mg/dL Direct Bilirubin 0.2 (0.0-0.5) mg/dL AST 26 (5-37) U/L ALT 29 (0-40) U/L Alkaline Phosphatase 61 (39-117) U/L Albumin 3.7 (3.5-5.0) g/dL noncontrast head CT revealed [id number] diffuse cerebral atrophy and moderately severe chronic microvascular ischemic changes. Assessment and Plan (1) Syncope: Status: Acute 71 years old man with multiple steroid typical episodes of feeling lightheaded and dizzy and then passing out with sometime loss of bladder control. Last episode was yesterday and there was no obvious trigger. Until proven otherwise, these episodes were strongly suggestive of epilepsy. His brain scan reveals significant chronic vascular disease which could create these type of episodes. He has been seeing a neurologist in [place] my recommendation for him is to go back and have it further evaluated. At this time he should not drive and not be involved in an activity that could put his life in danger such as swimming alone or sitting in a soaking tub alone. He might benefit from long-term EEG monitoring to make a definitive diagnosis. Procedures Date of Service Date of Service: 03/01/22
[2022-03-01 10:59] VITALS: PULSE 62; RESP 16
[2022-03-01 11:16] VITALS: BP 119/58; PULSE 57; RESP 19; TEMP 36.9; O2SAT 96
--- NOTE | 2022-03-01 12:12 | P.DS_ITS ---
DS: Providers Provider Date of Service: 03/01/22 Date of admission: 02/28/22 17:48 Primary care physician: Faisal Harrison MD Consults: 02/28/22 17:48 Consult to Neurology Routine Consulting Provider: [facility] Reason for consultation: Syncopal episode, LOC for your kind eval DS: Diagnosis Discharge Diagnosis (1) Syncope: Status: Acute DS: Summary Hospital Course Hospital Course: Admission note HPI ?a 71 years old male with PMH of CAD post CABG on Eliquis, CHF, COPD who presents to the hospital with complains of unwitnessed syncope this morning.? The patient reported that he was at the wrist on drinking coffee when suddenly he felt lightheaded is and the next thing he remembers waking up in the ambulance he denies any headache, double vision, palpitation, chest pain, yola rtness of breath, change in bowel habit or urinary symptoms.? He reports this is the 5th episode of syncope this year as he was evaluated previously at [facility] for the same problem with no definitive diagnosis but he was told it is migraine variant or vasovagal attack. The patient reported mild headache as he hit his head with the table but no vomiting or headache at this point. In the emergency images for the brain were negative for any acute findings.? CXR was concerning for possible pneumonia as the patient reported feeling weaker over the last few days with decreased energy. Admitted for further evaluation and treatment. Hospital course the patient was admitted to the hospital with no recurrence of the syncopal episode during the hospital stay. CT scan of the head showed chronic ischemic changes with no acute findings. He was evaluated by neurologist who recommended follow-up with his primary Neurology for possible seizure activity and suggested starting Keppra for the time being. He was noted to have pneumonia on the chest x-ray with no hypoxia or sepsis. Treated with IV antibiotics of azithromycin and ceftriaxone with good response. Will be discharged on azithromycin and Ceftin for 4 more days. Continue azithromycin and Ceftin for the next 4 days Start Keppra 250 mg twice Daily To follow-up with Primary neurologist as outpatient Time Spent with Patient Time attestation: Total time spent providing and/or coordinating discharge services: Discharge coordination time: Less than 30 minutes Quality: Safe Use of Opioids Does Pt have an Active Cancer Diagnosis on the Problem List?: No Quality: Stroke Does the patient have a stroke diagnosis?: No Physical Exam Vital Signs: Vital Signs: Last Vital Signs Temp 98.4 F 03/01/22 11:16 Pulse 57 03/01/22 11:16 Resp 19 03/01/22 11:16 BP 119/58 L 03/01/22 11:16 Pulse Ox 96 03/01/22 11:16 BMI result Body Mass Index 31.3 Const: Other: Constitutional : Alert, oriented, not in distress Neck : Normal inspection, Supple Cardiovascular : RRR, no JVP, no lower extremity edema Respiratory : fair bilateral air entry, basal fine bilateral crackles, wheezes or rhonchi Gastrointestinal: soft, lax, Normal bowel sounds, Non tender Skin : Warm, Dry Neurological : Alert & oriented x3, No focal deficit , CN 2-12 within normal DS: Data Data Completed and Pending Labs on day of discharge: Laboratory Results - last 24 hr 02/28/22 02/28/22 02/28/22 12:43 12:43 13:23 WBC 10.6 RBC 5.14 Hgb 15.4 Hct 44.5 MCV 86.6 MCH 30.0 MCHC 34.6 RDW 12.6 Plt Count 228 MPV 10.1 Immature Gran % (Auto) 0.5 H Neut % (Auto) 75.4 H Lymph % (Auto) 13.9 L [place] % (Auto) 10.0 Eos % (Auto) 0.0 Baso % (Auto) 0.2 Lymph # (Auto) 1.5 [place] # (Auto) 1.1 Eos # (Auto) 0.0 Baso # (Auto) 0.0 Abs Immat Gran (auto) 0.05 H Absolute Neuts (auto) 8.0 Absolute Nucleated RBC 0.000 Nucleated RBC % (auto) 0.0 PT 15.2 H INR 1.3 H APTT 35.4 Sodium Potassium Chloride Carbon Dioxide Anion Gap BUN Creatinine Estim Creat Clear Calc Estimated GFR POC Glucose Random Glucose Calcium Magnesium Total Bilirubin Direct Bilirubin AST ALT Alkaline Phosphatase Troponin I High Sens B-Natriuretic Peptide Total Protein Albumin Lipase COVID-19 (MATT) Negative COVID-19 Clin Com See Note 02/28/22 02/28/22 02/28/22 13:23 13:23 15:10 WBC RBC Hgb Hct MCV MCH MCHC RDW Plt Count MPV Immature Gran % (Auto) Neut % (Auto) Lymph % (Auto) [place] % (Auto) Eos % (Auto) Baso % (Auto) Lymph # (Auto) [place] # (Auto) Eos # (Auto) Baso # (Auto) Abs Immat Gran (auto) Absolute Neuts (auto) Absolute Nucleated RBC Nucleated RBC % (auto) PT INR APTT Sodium 135 Potassium 4.5 Chloride 99 Carbon Dioxide 30 H Anion Gap 11 L BUN 14 Creatinine 0.97 Estim Creat Clear Calc 70.8 Estimated GFR > 60 POC Glucose Random Glucose 120 H Calcium 9.3 Magnesium 2.1 Total Bilirubin 0.6 Direct Bilirubin 0.2 AST 26 ALT 29 Alkaline Phosphatase 61 Troponin I High Sens 3.5 5.5 D B-Natriuretic Peptide 78 Total Protein 6.6 Albumin 3.7 Lipase 17 COVID-19 (MATT) COVID-19 [employer] 02/28/22 03/01/22 03/01/22 17:09 06:09 06:09 WBC 10.8 RBC 5.11 Hgb 15.5 Hct 44.3 MCV 86.7 MCH 30.3 MCHC 35.0 RDW 12.3 Plt Count 230 MPV 9.7 Immature Gran % (Auto) Neut % (Auto) Lymph % (Auto) [place] % (Auto) Eos % (Auto) Baso % (Auto) Lymph # (Auto) [place] # (Auto) Eos # (Auto) Baso # (Auto) Abs Immat Gran (auto) Absolute Neuts (auto) Absolute Nucleated RBC 0.000 Nucleated RBC % (auto) 0.0 PT INR APTT Sodium 136 Potassium 4.0 Chloride 102 Carbon Dioxide 26 Anion Gap 12 BUN 14 Creatinine 0.80 Estim Creat Clear Calc 86.7 Estimated GFR > 60 POC Glucose 104 Random Glucose 99 Calcium 8.8 Magnesium Total Bilirubin Direct Bilirubin AST ALT Alkaline Phosphatase Troponin I High Sens B-Natriuretic Peptide Total Protein Albumin Lipase COVID-19 (MATT) COVID-19 Clin Com Discharge Plan Discharge Patient Disposition: Home Health Service Discharge Diagnosis: syncope: possible seizures disorder Pneumonia Referrals: Faisal Harrison MD [Primary Care Provider] - 1 Week Discharge Medications: New levetiracetam 250 mg Tablet 250 mg PO BID 30 Days Qty: 60 0RF cefuroxime axetil 500 mg tablet 500 mg PO BID Qty: 8 0RF azithromycin 500 mg tablet 500 mg PO DAILY 4 Days Qty: 4 0RF Continued sodium chloride [NebuSal] 3 % solution for nebulization 3 ml inhalation BID 0RF omeprazole 20 mg capsule,delayed release(DR/EC) 1 cap PO BID 0RF furosemide 20 mg tablet 1 tab PO BID 0RF albuterol sulfate 90 mcg/actuation HFA aerosol inhaler 2 puff PO Q4H 0RF finasteride 5 mg tablet 1 tab PO DAILY 0RF alfuzosin 10 mg tablet extended release 24 hr 1 tab PO Q OTHER DAY 0RF Pulmicort Flexhaler 180 mcg/actuation aerosol powdr breath activated 1 - 2 puff inhalation BID 0RF budesonide-formoterol [Symbicort] 160-4.5 mcg/actuation HFA aerosol inhaler 2 inh inhalation BID 0RF Eliquis 5 mg tablet 1 tab PO BID 0RF multivitamin Tablet 1 tab PO DAILY 0RF omega 0-exi-kde-fish oil [Fish Oil] 1,200 (144-216) mg Capsule 1 cap PO DAILY 0RF Held azithromycin 250 mg tablet 1 tab PO MOWEFR 0RF Hold Instructions: Resume on 03/06/22. Discharge Orders: Discharge Order (Routine); Ordered 03/01/22 Ordered By: Lenora Mcdowell Diet: advance to usual diet Activity on Discharge: As tolerated Stand Alone Forms: Patient Portal Discharge page Care Plan Goals: Read below Health Concerns: Read below Plan of Treatment: Read below Assessment: you were admitted to the hospital for evaluation of syncopal episode. Images of the brain showed chronic ischemic changes as you were evaluated by neurologist Dr. Plasencia who suggested starting treatment for possible seizure activity and follow-up with your neurologist as outpatient. You were also noted to have a pneumonia with no difficulty breathing or need of oxygen supplement treated with IV antibiotics. Continue azithromycin and Ceftin for the next 4 days Start Keppra 250 mg twice Daily To follow-up with your primary neurologist as outpatient.
[2022-03-01] MEDS: levETIRAcetam 250 MG TABLET PO (12:13)
== END 2022-03-01 13:55 | disposition home health service (06) ==
LOC: HO.ED 17:25 → HO.EDOVER 18:09 → HO.IMC 19:09
PROVIDERS: Physician Assistant; Admitting Provider Student in an Organized Health Care Education/Training Program; Emergency Provider Emergency Medicine; PCP Family Medicine; Visit Provider Student in an Organized Health Care Education/Training Program
DX: R55 Syncope and collapse (principal); J18.9 Pneumonia, unspecified organism; I49.1 Atrial premature depolarization; I44.0 Atrioventricular block, first degree; I45.2 Bifascicular block; I25.10 Atherosclerotic heart disease of native coronary artery without angina pectoris; J44.9 Chronic obstructive pulmonary disease, unspecified; R10.32 Left lower quadrant pain; Z20.822 Contact with and (suspected) exposure to COVID-19; Z91.81 History of falling; Z95.818 Presence of other cardiac implants and grafts; Z95.1 Presence of aortocoronary bypass graft; Z88.0 Allergy status to penicillin; Z79.01 Long term (current) use of anticoagulants; Z79.899 Other long term (current) drug therapy
CPT/HCPCS: 36415; 70450; 71045; 72125; 74177; 80048; 80076; 82947; 83690; 83735; 83880; 84484; 85025; 85027; 85610; 85730; 87040; 87635; 93005; 96365; 96367; 96375; 97162; 99219; 99285; J0456; J0696; Q9967